=== PATIENT | male | born 1945 | race Caucasian/White ===

== ENCOUNTER → 2017-11-07 | Outpatient (CLI) | payer OTHER | LOC: CIMAGING 10:13 | PROVIDERS: ATTEND Nurse Practitioner | DX: I82.4Z2 Acute embolism and thrombosis of unspecified deep veins of left distal lower extremity (principal) | CPT/HCPCS: 93971-PO ==

== ENCOUNTER → 2017-11-27 | Outpatient (CLI) | payer OTHER | LOC: CIMAGING 10:35 | PROVIDERS: ATTEND Registered Nurse | DX: S99.922A Unspecified injury of left foot, initial encounter (principal) | CPT/HCPCS: 73660-PO ==

== ENCOUNTER → 2018-02-12 | Outpatient (CLI) | payer OTHER | LOC: CIMAGING 10:15 | PROVIDERS: ATTEND Nurse Practitioner | DX: R60.9 Edema, unspecified (principal); Z86.718 Personal history of other venous thrombosis and embolism | CPT/HCPCS: 93971-PO ==